=== PATIENT | male | born 1965 | race Caucasian/White ===

== ENCOUNTER 2017-01-22 03:15 | Emergency (ER) | payer MEDICAID ==
[~2017-01-22] VITALS: Ht 167.6 cm; Wt 78.0 kg
[2017-01-22 03:19] VITALS: BP 126/100
--- NOTE | 2017-01-22 03:32 | NUR ---
51 Y/O M HERE W/C/O TESTICULAR PAIN X 1 YEAR, GETTING WORSE LATETLY. PT STATED HAS BEING DRINKING LATELY AND WALKED ALL THE WAY FROM [place] TO THIS HOSPITAL. NO S/S OF DISTRESS NOTED. ER MD MADE AWARE.
[2017-01-22] MEDS ORDERED: KETOROLAC 60 MG/2 ML VIAL IM ONE (03:50)
--- NOTE | 2017-01-22 05:41 | NUR ---
PT SLEEPING, VSS. NO S/S OF DISTRESS NOTED AT THE MOMENT.
[2017-01-22 06:45] VITALS: BP 126/80
--- NOTE | 2017-01-22 06:46 | NUR ---
Patient discharged with v/s stable. Written and verbal after care instructions given and explained. Patient alert, oriented and verbalized understanding of instructions. Ambulatory with steady gait. All questions addressed prior to discharge. ID band removed. Patient advised to follow up with PMD. Rx of TRAMADOL HYDROCHLORIDE given. Patient educated on indication of medication including possible reaction and side effects. Opportunity to ask questions provided and answered.
== END 2017-01-22 06:45 | disposition home or self-care (01) ==
LOC: MED 03:15
DX: R10.9 Unspecified abdominal pain (principal); R03.0 Elevated blood-pressure reading, without diagnosis of hypertension; F17.210 Nicotine dependence, cigarettes, uncomplicated
CPT/HCPCS: 76870; 96372; 99284; J1885; Q0092

== ENCOUNTER 2017-12-09 21:10 | Inpatient (IN) | payer MEDICAID ==
[~2017-12-09] VITALS: Ht 167.6 cm; Wt 72.6 kg
[2017-12-09 21:21] VITALS: BP 140/85
--- NOTE | 2017-12-09 21:41 | NUR ---
PATIENT TAKEN TO BED 4 BY [facility]
--- NOTE | 2017-12-09 21:55 | NUR ---
52 Y/O BIB[place] W/C/O ALOC, FOUND ON BUS STOP, SEMI-UNCONSCIOUSS, ETOH. PT DENIES ANY EMD HX. VSS. PER MEDIC ATIVAN FOUND IN BACK PT DENIES TAKEN ONE RECENTLY. ALOC 3, CONFUSED. NO OTHER S/S OF DISTRESS NOTED. IV ON PLACED. ER MD MADE AWARE.
[2017-12-09] MEDS ORDERED: NACL 0.9% 1,000 ML IV ONE (22:15)
--- NOTE | 2017-12-09 22:26 | NUR ---
X-Ray at bedside.
--- NOTE | 2017-12-09 23:00 | NUR ---
PT RESTING IN BED, ASLEEP. PT DENIES ANY PAIN AT THE MOMENT.
[2017-12-09] MEDS ORDERED: HALOPERIDOL IM 5 MG/ML VIAL IM ONE (23:05)
[2017-12-09] MEDS ORDERED: diphenhydrAMINE 50 MG/ML VIAL IM ONE (23:05)
--- NOTE | 2017-12-09 23:18 | NUR ---
HEMATOMA TO R FOREHEAD NOTED S/P FALL, WITNESSED BY EMT ALOK WHILE PT TRIED TO GET OUT BED. NO OPEN WOUNDS NOTED, PT ASSISTED TO BED, ER MD AT BEDSIDE EVALUATING PT. CHARGE NURSE MADE AWARE WELL.
[2017-12-09 23:26] LABS: BASOPHILS # (AUTO) 0.3 K/uL (0.00-0.22); BASOPHILS % (AUTO) 4.2 % (0.0-2.0); EOSINOPHILS # (AUTO) 0.2 K/uL (0-0.4); EOSINOPHILS % (AUTO) 2.5 % (0.0-4.0); HEMOGLOBIN 11.6 g/dL (12.0-18.0); LYMPHOCYTES % (AUTO) 15.8 % (20.5-51.1); MEAN CORPUSCULAR HEMOGLOBIN 29 pg (27-31); MEAN CORPUSCULAR HGB CONC 32 g/dL (33-37); MEAN CORPUSCULAR VOLUME 89.5 fL (80-94); MONOCYTES # (AUTO) 0.7 K/uL (0.8-1.0); MONOCYTES % (AUTO) 11.1 % (1.7-9.3); NEUTROPHILS # (AUTO) 4.3 K/uL (1.8-7.7); NEUTROPHILS % (AUTO) 66.4 % (42.2-75.2); PLATELET COUNT (AUTO) 313 K/uL (140-450); RED BLOOD CELL COUNT(AUTO) 4.02 MIL/uL (4.20-6.10); RED CELL DISTRIBUTION WIDTH 13.2 % (11.6-13.7); WHITE BLOOD COUNT (AUTO) 6.5 K/uL (4.8-10.8)
[2017-12-10] MEDS ORDERED: MULTIVITAMIN-12 10 ML, THIAMINE 100 MG, MAGNESIUM SULFATE 50% 2,000 MG, FOLIC ACID 5 MG... IV ONE ×5
[2017-12-10] MEDS ORDERED: MULTIVITAMIN-12 10 ML VIAL IV ONE (00:13)
[2017-12-10] MEDS ORDERED: MAGNESIUM SULFATE 50% 1000 MG/2 ML VIAL IV ONE (00:13)
[2017-12-10] MEDS ORDERED: FOLIC ACID 5 MG/ML SYR ONE (00:13)
[2017-12-10 00:19] LABS: ACETAMINOPHEN 2.5 ug/ml (10-30); ANION GAP 16.1 (8-16); ASPARTATE AMINOTRANSFERASE 32 U/L (15-37); CARBON DIOXIDE 23.4 mmol/L (21-32); CHLORIDE 111 mmol/L (98-107); CREATININE 1.2 mg/dL (0.7-1.3); GFR ARICAN-AMERICAN 82 mL/min (>90); GLUCOSE 96 mg/dL (74-106); POTASSIUM 3.5 mmol/L (3.5-5.1); SODIUM SERUM 147 mmol/L (136-145); TOTAL BILIRUBIN 0.4 mg/dL (0.0-1.0); UREA NITROGEN, BLOOD 8 mg/dL (7-18)
--- NOTE | 2017-12-10 00:25 | NUR ---
PT CONTINUES ASLEEP, ON MANAGER STORY, NSR. WILL CONT TO MONITOR.
[2017-12-10 00:27] LABS: SALICYLATE < 2.8 mg/dL (2.8-20.0)
[2017-12-10 00:47] LABS: CREATINE KINASE MB 8.3 ng/mL (0-3.6)
--- NOTE | 2017-12-10 01:32 | NUR ---
PT ASLEEP, ON ORTHOPAEDIC TECHNOLOGIST, VSS. NSR. ADMITING RESIDENT AT BEDSIDE EVALUATING PT.
[2017-12-10] MEDS ORDERED: ONDANSETRON 4 MG/2 ML VIAL IVP PRN (01:35)
[2017-12-10] MEDS ORDERED: HYDROcodone/APAP 7.5/325 MG 1 TAB PO PRN (01:35)
[2017-12-10] MEDS ORDERED: ACETAMINOPHEN 325 MG TAB PO PRN (01:35)
[2017-12-10] MEDS ORDERED: LORazepam 2 MG/ML VIAL IVP PRN (01:40)
[2017-12-10 01:55] LABS: BARBITURATE, URINE NEG. ng/ml (NEG <=200); BENZODIAZEPINE, URINE POS. ng/mL (NEG <=200); CANNABINOID, URINE NEG. ng/mL (NEG <=50); COCAINE, URINE NEG. ng/mL (NEG <=300); OPIATE, URINE NEG. ng/mL (NEG <=2000); PHENCYCLIDINE SCREEN,URINE NEG. ng/mL (NEG <=25)
[2017-12-10 01:58] LABS: PROTHROMBIN TIME 11.1 secs (10.8-13.4)
[2017-12-10 02:10] LABS: CHOL/HDL RATIO 2.3 (1-4.5); FREE T4 (FREE THYROXINE) 1.14 ng/dL (0.76-1.46); MAGNESIUM 1.8 mg/dL (1.8-2.4); PHOSPHORUS 2.8 mg/dL (2.5-4.9); THYROID STIMULATING HORMONE 1.58 uIU/mL (0.34-3.74)
--- NOTE | 2017-12-10 02:10 | NUR ---
Patient will be admitted to care of DR PALMA. Admited to TELEMETRY. Will go to room 124 A. Belongings list completed. Report to WENDY KELLY AT BEDSIDE.
[2017-12-10 02:13] LABS: APPEARANCE,URINE CLEAR (CLEAR); BILIRUBIN,URINE NEGATIVE (NEGATIVE); BLOOD, URINE 1+ (NEGATIVE); COLOR,URINE YELLOW (YELLOW); LEUKOCYTE ESTERASE ,URINE NEGATIVE (NEGATIVE); NITRITE, URINE NEGATIVE (NEGATIVE); UGLUCOSE NEGATIVE (NEGATIVE)
[2017-12-10 02:20] VITALS: BP 124/78
--- NOTE | 2017-12-10 02:20 | NUR ---
ADMITTED A 52M FROM ER. CAME BY JERRI. WITH C/C ALCOHOL INTOXICATION. DROWSY, BUT FOLLOW COMMAND AT TIMES WHEN NAME CALLED . ON O22L/NC , TELEMETRY PT- SR /BBB. WITH NO ACUTE DISTRESS NOTED. BEDREST. INITIAL SKIN ASSESSMENT DONE . WITH ABRASIONS ON RT FOREHEAD, SMALL BRUISED ON THE LT BUTTOCKS, DRY SCABS ON BOTH KNEES AND LOWER LEGS. LT FOOT DORSAL WITH OPEN BLISTER,2ND TOE WITH DRY SCAB,ALSO ON RT FOOT 2ND TOE ,DRY SCAB. HAS IVF BANANA BAG INFUSING WELL ON THE LT UPPER ARM. HAS ROBERTS CATHETER TO GRAVITY WITH CLEAR YELLOW URINE OUTPUT. . UNABLE TO ASSESS AND GET MEDICAL HISTORY OF PT DUE TO MENTAL STATUS. BED O PLACED ON LOW POSITION, SIDE RAILS PADDED FOR SEIZURE PRECAUTIONS. FREQUENT ROUNDS NEEDED. CALL LIGHT PLACED WITHIN EASY REACH. WILL FOLLOW UP ADMIT ORDERS. WILL CONTINUE TO MONITOR.
[2017-12-10 02:34] LABS: RBC,URINE 0-5 (RARE) /HPF (0-5); WBC,URINE NONE SEEN /HPF (0-5)
[2017-12-10 04:00] VITALS: BP 123/70
[2017-12-10] MEDS: LORazepam 1 MG TAB PO SCH ×3 (05:00→21:23)
[2017-12-10] MEDS: NACL 0.9% 1,000 ML IV SCH (05:50)
--- NOTE | 2017-12-10 06:00 | NUR ---
PT STILL VERY DROWSY. ATIVAN PO NOT STARTED AT 0500. DR. MADERA MADE AWARE.
--- NOTE | 2017-12-10 07:23 | NUR ---
PT STILL SLEEPING. NO DISTRESS NOTED. WILL ENDORSED TO AM NURSE IN STABLE CONDITION.
--- NOTE | 2017-12-10 07:30 | NUR ---
RECEIVED PT FROM PM NURSE, PT SLEEPING BUT AROUSABLE TO INITIAL ASSESSMENT. ON ROOM AIR, NO S/S OF RESPIRATORY DISTRESS NOTED. LUNG SOUNDS CLEAR, ROBERTS CATH IN PLACE WITH CLEAR YELLOW URINE NOTED. PT ABLE TO MOVE ALL HER EXTREMITIES, IV SITE INFILTRATION NOTED, WILL REINSERT IV. POC EXPLAINED TO PT, PT VERBALIZED UNDERSTANDING, WILL CONTINUE TO MONITOR.
[2017-12-10 07:54] LABS: BASOPHILS # (AUTO) 0.1 K/uL (0.00-0.22); EOSINOPHILS # (AUTO) 0.4 K/uL (0-0.4); HEMATOCRIT 38.5 % (36-52); HEMOGLOBIN 12.7 g/dL (12.0-18.0); LYMPHOCYTES # (AUTO) 1.6 K/uL (2.0-11.5); MEAN CORPUSCULAR HEMOGLOBIN 30 pg (27-31); MEAN CORPUSCULAR HGB CONC 33 g/dL (33-37); MONOCYTES # (AUTO) 0.8 K/uL (0.8-1.0); NEUTROPHILS # (AUTO) 6.6 K/uL (1.8-7.7); PLATELET COUNT (AUTO) 312 K/uL (140-450); RED BLOOD CELL COUNT(AUTO) 4.27 MIL/uL (4.20-6.10); RED CELL DISTRIBUTION WIDTH 14.4 % (11.6-13.7); WHITE BLOOD COUNT (AUTO) 9.5 K/uL (4.8-10.8)
[2017-12-10 07:58] LABS: BASOPHILS % (AUTO) 0.6 % (0.0-2.0); EOSINOPHILS % (AUTO) 3.8 % (0.0-4.0); LYMPHOCYTES % (AUTO) 17.2 % (20.5-51.1); MONOCYTES % (AUTO) 8.4 % (1.7-9.3)
[2017-12-10 08:00] VITALS: BP 110/65
[2017-12-10 08:20] LABS: MAGNESIUM 2.3 mg/dL (1.8-2.4); PHOSPHORUS 3.6 mg/dL (2.5-4.9)
[2017-12-10 08:36] LABS: CREATININE 1.2 mg/dL (0.7-1.3)
[2017-12-10] MEDS ORDERED: THIAMINE 100 MG TAB PO SCH (09:00)
[2017-12-10] MEDS ORDERED: FOLIC ACID 1 MG TAB PO SCH (09:00)
[2017-12-10] MEDS ORDERED: MULTIVITAMIN 1 TAB PO SCH (09:00)
[2017-12-10] MEDS ORDERED: CALCIUM CARB/VIT-D 500 MG/200 IU 1 TAB PO SCH (09:00)
--- NOTE | 2017-12-10 09:22 | NUR ---
PATIENT HAS BEEN SCREENED AND CATEGORIZED MODERATE NUTRITION RISK. PATIENT WILL BE SEEN WITHIN 3-5 DAYS OF ADMISSION. 12/12/17 - 12/14/[address]
[2017-12-10] MEDS: DOCUSATE SODIUM 100 MG GELCAP PO SCH ×2 (09:41→21:23)
[2017-12-10] MEDS ORDERED: IBUPROFEN 400 MG TAB PO PRN (11:05)
--- NOTE | 2017-12-10 11:21 | NUR ---
CM NOTE PER REDD FARNER AUDREY COORDINATOR PH# [phone], SEND REVIEWS TO [phone] KAYLA ESTHER PH# [phone]. INITIAL REVIEW FAXED TO [facility] [phone] PH# [phone] AND TO [facility] [phone] KAYLA ARBYRD PH# [phone].
[2017-12-10] MEDS: NACL 0.45% 1,000 ML IV SCH ×2 (11:30→22:32)
[2017-12-10 12:00] VITALS: BP 125/60
[2017-12-10 16:00] VITALS: BP 133/83
--- NOTE | 2017-12-10 19:30 | NUR ---
RECEIVED FROM AM RN AWAKE AND ALERT. ABLE TO VERBALIZE NEEDS WELL IN [place]I. PT. ABLE TO USE CALL LIGHT FOR HELP. DX. OF ETOH. PT. BED ALARM ON AND CARE PLANS FOR THE NIGHT DISCUSSED WITH HIM. PT. STATING HE NEEDS TO BE OUT FROM HERE TOMORROW EARLY RT HE HAS A PSYCHIATRIST APPOINTMENT. NOTED BRUISE TO FOREHEAD FROM A SUSTAINED FALL PER PT. FROM SOMEWHERE. NO NAUSEA AND VOMITING REPORTED FROM AM RN OR AT THIS TIME.
[2017-12-10 21:04] VITALS: BP 124/81
--- NOTE | 2017-12-10 21:07 | NUR ---
SLEEPING AT THIS TIME. TELEMETRY MONITORING. CALL LIGHT WITH IN REACH AND BED ALARM ON.
[2017-12-11 00:48] VITALS: BP 127/73
--- NOTE | 2017-12-11 01:38 | NUR ---
PT. SLEEPING AT THIS TIME. NO SOB. TELEMETRY MONITORING. WAKES UP EASILY WHEN TOUCHED. NO RESTLESSNESS NOTED.
--- NOTE | 2017-12-11 02:04 | NUR ---
ENDORSED TO NEXT RN FOR CONTINUITY OF CARE . SLEEPING BUT ABLE TO WAKE UP EASILY WHEN TOUCHED. TELEMETRY MONITORING. DX. ETOH.
--- NOTE | 2017-12-11 02:05 | NUR ---
RECEIVED PT SLEEPING, NO SIGNS OF DISTRESS, IVF INFUSING WELL, MONITORED CLOSELY.
--- NOTE | 2017-12-11 03:50 | NUR ---
PT SLEEPING, EASILY AROUSABLE, VITAL SIGNS STABLE, DENIES ANY PAIN BUT REQUESTING ATIVAN, WILL MEDICATE WHEN DUE, NO WITHDRAWAL SYMPTOMS NOTED, MONITORED CLOSELY.
[2017-12-11 04:00] VITALS: BP 119/72
[2017-12-11] MEDS: LORazepam 1 MG TAB PO SCH (04:15)
--- NOTE | 2017-12-11 06:00 | NUR ---
ROUNDS MADE, PT SLEEPING, NO SIGNS OF DISTRESS, IVF INFUSING WELL, ROBERTS CATHETER DRAINING WELL.
[2017-12-11 06:46] LABS: BASOPHILS # (AUTO) 0.1 K/uL (0.00-0.22); BASOPHILS % (AUTO) 1.5 % (0.0-2.0); EOSINOPHILS # (AUTO) 0.3 K/uL (0-0.4); EOSINOPHILS % (AUTO) 3.8 % (0.0-4.0); HEMATOCRIT 38.9 % (36-52); HEMOGLOBIN 13.1 g/dL (12.0-18.0); LYMPHOCYTES # (AUTO) 1.1 K/uL (2.0-11.5); LYMPHOCYTES % (AUTO) 12.9 % (20.5-51.1); MEAN CORPUSCULAR HEMOGLOBIN 30 pg (27-31); MEAN CORPUSCULAR HGB CONC 34 g/dL (33-37); MEAN CORPUSCULAR VOLUME 89.4 fL (80-94); MONOCYTES # (AUTO) 1.1 K/uL (0.8-1.0); MONOCYTES % (AUTO) 12.8 % (1.7-9.3); NEUTROPHILS # (AUTO) 5.7 K/uL (1.8-7.7); PLATELET COUNT (AUTO) 307 K/uL (140-450); RED BLOOD CELL COUNT(AUTO) 4.36 MIL/uL (4.20-6.10); RED CELL DISTRIBUTION WIDTH 13.1 % (11.6-13.7); WHITE BLOOD COUNT (AUTO) 8.3 K/uL (4.8-10.8)
[2017-12-11 07:39] LABS: ANION GAP 12.3 (8-16); CARBON DIOXIDE 27.5 mmol/L (21-32); CREATININE 1.3 mg/dL (0.7-1.3); POTASSIUM 3.8 mmol/L (3.5-5.1)
--- NOTE | 2017-12-11 07:40 | NUR ---
PT AWAKE, NO SIGNS OF DISTRESS, REPORT GIVEN TO RN VIRGIE RN FOR CONTINUITY OF CARE.
--- NOTE | 2017-12-11 07:41 | NUR ---
RECEIVED REPORT FROM INSURANCE CLAIMS ANALYST NURSE BERONICA AT BEDSIDE FOR CONTINUITY OF CARE. PT IS AWAKE AND ORIENTED X4. INTRODUCED SELF AND UPDATED BOARD. NO COMPLAINTS AT THIS TIME. PT AWARE OF PLAN FOR D/C TODAY. ROBERTS CATHETER IN PLACE, IV TO L UA 18G INTACT. BED IN LOW POSITION, WHEELS LOCKED, CALL LIGHT WITHIN REACH. WILL CONTINUE TO MONITOR.
[2017-12-11 07:45] LABS: MAGNESIUM 1.9 mg/dL (1.8-2.4); PHOSPHORUS 2.7 mg/dL (2.5-4.9)
[2017-12-11] MEDS ORDERED: FOLI1TAB90 PO (07:45)
[2017-12-11] MEDS ORDERED: THIA100T31 PO (07:45)
[2017-12-11] MEDS ORDERED: LORA1TAB7 PO (07:45)
[2017-12-11 08:00] VITALS: BP 135/82
[2017-12-11 09:07] LABS: TRANSFERRIN 209 mg/dL (200-370)
--- NOTE | 2017-12-11 10:11 | NUR ---
PT D/C TO GO HOME. GAVE D/C FORMS, INSTRUCTIONS, RX, AND FOLLOW UP APPOINTMENT TODAY IN [place]. PT VERBALIZED UNDERSTANDING AND SIGNED FORMS. D/C IV TO L FA. IV CATHETER INTACT. APPLIED DRESSING AND PRESSURE TO SITE NO BLEEDING NOTED. D/C ROBERTS CATHETER. 450 ML URINE NOTED. PT TOLERATED WELL. PT CHANGED IN OWN CLOTHES AND LEFT WITH ALL PERSONAL BELONGINGS. GAVE BUS PASS TO PT. LEFT UNIT VIA AMBULATION. PT LEFT IN STABLE CONDITION.
--- NOTE | 2017-12-11 13:24 | NUR ---
CM NOTE INITIAL REVIEW FAXED TO [facility] [phone] PH# [phone] AND TO [place] [phone] [facility] PH# [phone].
[2017-12-11 15:11] LABS: FERRITIN 89 ng/mL (30-400); FOLIC ACID > 20.00 ng/mL (>3.0)
== END 2017-12-11 10:10 | disposition home or self-care (01) | DRG 775 ==
LOC: MED 21:10 → MTU 12-10 01:39
PROVIDERS: ADMIT Family Medicine Sports Medicine; ATTEND Family Medicine Sports Medicine
DX: F10.129 Alcohol abuse with intoxication, unspecified (principal); G92 Toxic encephalopathy; E87.0 Hyperosmolality and hypernatremia; S09.8XXA Other specified injuries of head, initial encounter; E44.0 Moderate protein-calorie malnutrition; G90.9 Disorder of the autonomic nervous system, unspecified; F33.1 Major depressive disorder, recurrent, moderate; E83.51 Hypocalcemia; Y90.8 Blood alcohol level of 240 mg/100 ml or more; D64.9 Anemia, unspecified; X58.XXXA Exposure to other specified factors, initial encounter; Y93.89 Activity, other specified; Y92.89 Other specified places as the place of occurrence of the external cause; Y99.8 Other external cause status; Z68.25 Body mass index [BMI] 25.0-25.9, adult; E86.0 Dehydration
CPT/HCPCS: 36415; 70450; 71045; 76770; 80048; 80053; 80305; 81001; 82150; 82550; 82553; 82607; 82728; 82746; 83036; 83540; 83690; 83735; 83880; 84100; 84439; 84443; 84484; 85025; 85045; 85610; 85730; 87081; 93005; 93880; 96360; 96372; 97140; 99285; A9153; G0480; G0482; J1200; J1630; J2060; J3475; J3490; J7030; Q0092